=== PATIENT | female | born 1950 | race African-American/Black ===

== ENCOUNTER 2017-12-20 12:14 | Outpatient (CLI) | payer MEDICARE | END 2017-12-20 12:15 | disposition home or self-care (01) | LOC: BICMAMMO 12:14 | PROVIDERS: ATTEND Nurse Practitioner Family | DX: Z12.31 Encounter for screening mammogram for malignant neoplasm of breast (principal) | CPT/HCPCS: 77063; 77067 ==

== ENCOUNTER 2018-11-17 13:30 | Outpatient (CLI) | payer MEDICARE ==
--- NOTE | 2018-11-17 14:36 | RAD ---
LEFT HAND THREE VIEWS: History: Injury left hand. Left hand pain. FINDINGS/IMPRESSION: There is a fracture involving the dorsal aspect of the base of the distal phalanx of the left thumb. No significant displacement is seen. The fracture extends into the articular surface. POS: C
== END 2018-11-17 13:31 | disposition home or self-care (01) ==
LOC: BICRAD 13:30
DX: S69.92XA Unspecified injury of left wrist, hand and finger(s), initial encounter (principal); S62.522A Displaced fracture of distal phalanx of left thumb, initial encounter for closed fracture

== ENCOUNTER 2018-12-11 10:11 | Outpatient (CLI) | payer MEDICARE ==
--- NOTE | 2018-12-11 13:48 | RAD ---
THREE VIEWS LEFT THUMB: Date: 12-11-18 History: Closed nondisplaced fracture distal phalanx left thumb. Follow up evaluation. Comparison: 11-17-18 FINDINGS: Previously noted avulsion fracture seen at the dorsal aspect base of the distal phalanx left thumb is again seen. However, there is a great degree of displacement of the fracture fragment. There is also osteolysis at the fracture margins without evidence of interval healing. No additional fracture is s een. There is no dislocation. 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 IMPRESSION: Avulsion fracture base of left thumb with osteolysis now seen at the fracture margins and the density of the fracture fragment has diminished compared to the prior study. There is overlying soft tissue swelling which is also greater than the prior study. Findings may be related to infection superimpose d on fracture at the base of the distal phalanx left thumb. Orthopedic consultation is suggested. Code T POS: ANGELIC
== END 2018-12-11 10:12 | disposition home or self-care (01) ==
LOC: BICRAD 10:11
DX: S62.525D Nondisplaced fracture of distal phalanx of left thumb, subsequent encounter for fracture with routine healing (principal); S69.92XA Unspecified injury of left wrist, hand and finger(s), initial encounter; M89.542 Osteolysis, left hand; M79.89 Other specified soft tissue disorders

== ENCOUNTER 2018-12-21 10:13 | Outpatient (CLI) | payer MEDICARE | END 2018-12-21 10:14 | disposition home or self-care (01) | LOC: BICMAMMO 10:13 | PROVIDERS: ATTEND Nurse Practitioner Family | DX: Z12.31 Encounter for screening mammogram for malignant neoplasm of breast (principal) | CPT/HCPCS: 77063; 77067 ==

== ENCOUNTER 2022-11-25 10:40 | Outpatient (CLI) | payer MEDICARE | END 2022-11-25 10:41 | disposition home or self-care (01) | LOC: BICMAMMO 10:40 | PROVIDERS: ATTEND Family Medicine | DX: Z12.31 Encounter for screening mammogram for malignant neoplasm of breast (principal) | CPT/HCPCS: 77063; 77067 ==